=== PATIENT | male | born 1935 | race Caucasian/White ===

== ENCOUNTER 2019-04-30 13:17 | Inpatient (IN) | payer MEDICARE, SELFPAY | END 2019-05-04 15:15 | DRG 310 | PROVIDERS: Admitting Provider Internal Medicine; Emergency Provider Emergency Medicine; PCP Internal Medicine; Visit Provider Internal Medicine | DX: I48.0 Paroxysmal atrial fibrillation (principal); I47.2 Ventricular tachycardia; E78.5 Hyperlipidemia, unspecified; I10 Essential (primary) hypertension; Z86.73 Personal history of transient ischemic attack (TIA), and cerebral infarction without residual deficits; M19.90 Unspecified osteoarthritis, unspecified site; D64.9 Anemia, unspecified; I71.4 Abdominal aortic aneurysm, without rupture; Z96.652 Presence of left artificial knee joint; F03.90 Unspecified dementia, unspecified severity, without behavioral disturbance, psychotic disturbance, mood disturbance, and anxiety; Z85.46 Personal history of malignant neoplasm of prostate; Z23 Encounter for immunization | CPT/HCPCS: 36415; 51701; 70450; 74177; 80048; 80053; 80069; 81001; 81050; 82232; 82533; 82607; 82728; 82746; 83540; 83550; 83605; 83735; 84443; 84484; 85025; 85027; 85610; 85730; 86141; 87040; 87045; 87046; 87081; 87086; 87088; 87324; 87427; 90471; 90686; 93005; 95816; 96361; 96365; 97110; 97116; 97161; 97166; 97530; 97535; 99285; A9270; G0008; G0378; J0696; J3475; J7030; J7120; Q9967 ==

== ENCOUNTER 2019-10-21 19:27 | Inpatient (IN) | payer OTHER, MEDICARE, SELFPAY ==
[2019-10-21] VITALS (9 sets, daily range): BP systolic 139–191; BP diastolic 77–100; PULSE 94–149; RESP 22–38; O2SAT 89–97
--- NOTE | ~2019-10-21 | XR_ITS ---
EXAMINATION: XR chest 1V DATE: 10/21/2019 22:01 INDICATION: Shortness of breath, cough and possible aspiration TECHNIQUE: frontal view of the chest was obtained. COMPARISON: Chest radiograph dated 04/25/19 FINDINGS: New subtle patchy airspace opacities in the right mid and lower lung zone suspicious for aspiration o r pneumonia. Left lung remains clear. Suture line in the right midlung zone and surgical clips at the right hilum. No pleural effusion or pneumothorax. Heart size is normal. Tortuous thoracic aorta. The re are a few old healed left-sided rib fractures. Cholecystectomy clips in the right upper quadrant. IMPRESSION: 1. Subtle patchy airspace opacities in the right mid to lower lung zone with differential including a spiration, pneumonia, atelectasis or less likely asymmetric pulmonary edema. Reviewed, dictated and finalized at location A. TRIC TRUCK DRIVER IMPRESSION: 1. Subtle patchy airspace opacities in the right mid to lower lung zone with di fferential including aspiration, pneumonia, atelectasis or less likely asymmetr ic pulmonary edema.
--- NOTE | ~2019-10-21 | XR_ITS ---
EXAMINATION: XR abdomen obstructive series DATE: 10/21/2019 22:58 INDICATION: Vomiting. Difficulty breathing. TECHNIQUE: Frontal supine and upright views of the abdomen were obtained. COMPARISON: None. FINDINGS: Cholecystectomy clips in the right upper quadrant. Additional surgical clips versus brachytherapy see ds in the pelvis in the region of the prostate. No dilated gas-filled loops of bowel. No free intrap eritoneal gas. Subtle airspace opacities in the right mid to lower lung zone. Moderate lumbar spondyl osis. Moderate left and mild right sacroiliitis. Small bone island at the right femoral neck. IMPRESSION: 1. No free intraperitoneal gas or dilated gas-filled loops of bowel to suggest obstruction. 2. Subtle opacities in the right mid and lower lung zone concerning for aspiration or pneumonia. Reviewed, dictated and finalized at location A. ENTATION DESIGNER IMPRESSION: 1. No free intraperitoneal gas or dilated gas-filled loops of bowel to suggest obstruction. 2. Subtle opacities in the right mid and lower lung zone concerning for aspirat ion or pneumonia.
--- NOTE | 2019-10-21 19:35 | ECG_ITS ---
Measurements Intervals [place] Rate: 101 P: 114 MT: 211 QRS: -70 QRSD: 98 T: 64 QT: 371 QTc: 483 Interpretive Statements ATRIAL FLUTTER/TACHYCARDIA WITH RAPID VENTRICULAR RESPONSE LEFT AXIS DEVIATION INCOMPLETE RIGHT BUNDLE BRANCH BLOCK DELAYED PRECORDIAL R/S TRANSITION BASELINE ARTIFACT- I, II, III, AVR, AVL, AVF, V1-V2 ABNORMAL ECG Electronically Signed On 10-23-2019 16:23:00 GEOSCIENTIST by Maximilian Molina D.O.
--- NOTE | 2019-10-21 20:23 | ED.SOB ---
HPI - SOB/Dyspnea General Chief Complaint: Shortness of Breath/Dyspnea Stated Complaint: poss aspiration Time Seen by Provider: 10/21/19 20:15 Source: family and RN notes reviewed Mode of arrival: EMS Limitations: clinical condition History of Present Illness HPI Narrative: Pt is an 83 y/o male who presents to the ED, via EMS from [facility], with c/o SOB that began earlier this evening. Pt's family was at bedside and provided the information. Pt has a hx of CVA with left sided weakness that occurred 10 days ago (10/11/19). Pt was put to bed lying flat after dinner. Pt was deep coughing frequently and then vomited. Pt's family went to go get NH staff and the NH staff suspected aspiration. Pt is oriented to person only, but pt's family states his orientation was progressively worsening before the pt's CVA. Pt was placed on 4L O2 NC and her saturation improved to the low 90?s. EMS increased her O2 to 6L and her oxygen saturation improved to 98%. Pt's family states that medication given to the pt after his CVA has made the pt more fatigued. Pt has been doing PT while at [facility]. Pt's family denies the pt wearing oxygen at home. He is currently taking antibiotics including flagyl and cipro. Pt is taking ASA 81 mg daily. HPI is limited due to pt?s clinical condition. MD elicited complaint: shortness of breath Onset (ago): hour(s) Context: choking/aspiration Timing: constant Associated symptoms: cough, nausea/vomiting and other (fatigue) Treatment prior to arrival: oxygen Related Data Home oxygen amount: none Home Medications Medication Instructions Recorded Confirmed allopurinol 10/21/19 aspirin [Aspirin Low Dose] 10/21/19 atorvastatin 10/21/19 ciprofloxacin HCl 10/21/19 clopidogrel 10/21/19 ferrous sulfate 10/21/19 finasteride mg 10/21/19 fluconazole 10/21/19 levetiracetam 500 mg PO BID 10/21/19 10/21/19 lisinopril 10/21/19 metronidazole [Flagyl] 500 mg PO Q8H 10/21/19 10/21/19 sennosides [senna] mg 10/21/19 Allergies Allergy/AdvReac Type Severity Reaction Status Date / Time Penicillins Allergy Unknown Rash Verified 10/21/19 19:51 Review of Systems Review of Systems: ROS unobtainable: other (limited due to pt's clinical condition) Constitutional: Constitutional: Reports fatigue Respiratory: Respiratory: Reports cough and Reports dyspnea Gastrointestinal: Gastrointestinal: Reports vomiting PMFSH Past Medical History Medical History (Updated 10/22/19 @ 00:53 by Miles Rosenberg MD) Adenocarcinoma Anemia Arthritis Asthma Bronchitis Cataracts, bilateral CVA (cerebrovascular accident) Gall bladder disease GI bleed HTN (hypertension) Hydrocele Hyperlipidemia IBS (irritable bowel syndrome) Inguinal hernia Lung cancer dx in 2013 Prostate cancer dx in 2012 Rectal bleed TIA (transient ischemic attack) Ulcer Surgical History Surgical History (Updated 10/21/19 @ 20:32 by Sarahi Morales) H/O inguinal hernia repair History of left knee replacement History of thoracic surgery removing the lung cancer Hx of cholecystectomy Family History Family History (Updated 10/21/19 @ 20:35 by Sarahi Morales) Father Cerebrovascular accident Hypertension Mother Hypertension Acute myocardial infarction Sibling Hypertension Acute myocardial infarction Ovarian cancer Social History Social History (Updated 10/21/19 @ 20:33 by Sarahi Morales) Smoking packs per day: 1 Smoking cigarettes per day: 20.0 Years smoked: 20 Smoking pack-years: 20.00 Smoking status: Former smoker Smoking end date: 08/27/66 Gender identity (if verbalized by the patient): Male Exam Const: General: awake and other (elderly, frail) Nutritional Appearance: well nourished Orientation/consciousness: Other orientation findings (oriented x0-1) Limitations: no limitations HENMT: Head: normocephalic and atraumatic Ears: external ears normal General nose exam: No nasal discharge
[2019-10-21] MEDS: ALBUTEROL SULFATE NEB 2.5 MG/0.5 ML INH 5 MG INHALATION (21:35)
[2019-10-21] MEDS: IPRATROPIUM BR 0.02% INH SOLN 0.5 MG/2.5 ML VIAL INHALATION (21:36)
[2019-10-21] MEDS: LACTATED RINGERS 1,000 ML 999 ML IV CONT (22:10)
[2019-10-21 22:29] LABS: Hematocrit 40.2 % (42.0-52.0); Hemoglobin 12.2 g/dL (14.0-18.0); Mean Corpuscular HGB Conc 30.3 g/dl (32-36); Mean Corpuscular Hemoglobin 25.8 pg (26-34); Mean Platelet Volume 9.5 fl (7.4-10.4); Platelet Count Result 365 k/mm3 (150-375); Red Blood Count 4.73 M/mm3 (4.6-6.20); Red Cell Distribution Width 16.3 % (11.5-14.5); White Blood Count 36.4 K/mm3 (4.5-10.0)
[2019-10-21 22:38] LABS: Alanine Aminotransferase 20 U/L (4-50); Albumin Level 3.4 g/dL (3.5-5.1); Alkaline Phosphatase 94 U/L (38-126); Aspartate Amino Transferase 24 U/L (17-59); Bilirubin,Total 0.6 mg/dL (0.2-1.3); Blood Urea Nitrogen 29 mg/dL (9-20); Calcium 8.6 mg/dL (8.4-10.2); Carbon Dioxide 23 mmol/L (22-30); Chloride 99 mmol/L (98-107); Estimated CRCL calculation 65 ml/min; Estimated Glomerular Filt Rate > 60; Glucose 161 mg/dL (75-110); Potassium 3.7 mmol/L (3.4-5.0); Sodium 142 mmol/L (137-145)
[2019-10-21 22:46] LABS: Band Neutrophils Percent 2 % (0-6); Lymphocytes Absolute Manual 4.36 K/mm3 (1.1-4.5); Monocytes Absolute Manual 0.36 K/mm3 (0.1-0.90); Monocytes Percent Manual 1 % (3-9); Neutrophils Absolute Manual 31.66 K/mm3 (1.3-6.7); Neutrophils Percent Manual 85 % (46-73); Total Cells Counted 100
[2019-10-21 22:47] LABS: Anisocytosis 2+ (NORMAL); Platelet Estimate Adequate (Adequate)
[2019-10-21] MEDS: FAMOTIDINE 20 MG/2 ML VIAL 40 MG IV PUSH (22:53)
[2019-10-21] MEDS: ONDANSETRON INJ 4 MG/2 ML VIAL IV PUSH (22:53)
--- NOTE | 2019-10-21 22:59 | PC.NURSE ---
pt vomited large amount of brown fluid all over chest and abdomen. large amount of emesis from nose as well. pt and linens cleaned. pt cleaned of moderate amt brown green foul smelling stool. upper dentures given to son
--- NOTE | 2019-10-21 23:12 | PC.NURSE ---
left message with [facility] to call back.
--- NOTE | 2019-10-21 23:25 | PC.NURSE ---
2314- spoke with lisa at [facility]- she will forward information to the office tomorrow for them to make contact with the family.
[2019-10-22] MEDS: LACTATED RINGERS 1,000 ML 999 ML IV CONT (00:37)
[2019-10-22 00:40] VITALS: BP 107/77; PULSE 126; RESP 33; O2SAT 92
[2019-10-22 00:46] VITALS: BP 135/68; PULSE 112; RESP 28; TEMP 36.8; O2SAT 100; BMI 21.9
[2019-10-22] MEDS: metroNIDAZOLE 500 MG/ISO 100ML 500 MG/100 ML BAG 100 MG IVPB (00:55)
[2019-10-22] MEDS: LACTATED RINGERS 1,000 ML 125 ML IV CONT (01:56)
--- NOTE | 2019-10-22 02:30 | ADMGEN ---
This patient, Weston Ortega, was admitted to 3 Medical Room 346-. Patient/family oriented to hospital policies and general routines including ID bracelet, bed and alarms, visiting hours, pain management, procedures, bathroom and other care routines, personal items, smoking policy, room service/diet, and visiting hours. Valuables list has been completed. Information on how to activate the Rapid Response Team has been discussed. Patient/Family are encouraged to report perceived risks to care and to ask questions if they do not understand what they are told or what they should do.
[2019-10-22] MEDS: ATROPINE SULFATE 1% OPHTH SOLN 5 ML BOTTLE SUBLINGUAL (03:36)
[2019-10-22 06:00] VITALS: BP 95/49; PULSE 95; RESP 24; TEMP 36.2; O2SAT 97
[2019-10-22] MEDS: FAMOTIDINE 20 MG/2 ML VIAL IV PUSH (08:08)
--- NOTE | 2019-10-22 09:19 | PM.IMHP ---
H&P: HPI History of Present Illness Chief complaint: ASPIRATION,RESP FAILURE,SEPSIS Narrative: Weston Ortega is a 83 year old male with a history of stroke, HTN, and hyperlipidemia who presented to the emergency department on 10/21/19 via EMS from [facility] for apparent shortness of breath. From chart review, the patient was put to bed lying flat and then began coughing and vomited. The family was present during the episode and alerted staff. Staff suspected aspiration and he was taken to the ED. At time of visit, the patient is asleep and no family is present. He did not awake to me calling his name. He did not awake to light tough or to more firm pressure. When asked if he was experiencing pain, he did open his eyes and shook his head, implying no. He remained asleep the rest of the encounter. He does appear to be comfortable, however he is experiencing excessive secretions and his breathing is noisy. Per discussion with U[employer] Cool, nursing staff attempted to provide suction overnight and he vomited. Per ER documentation, the family would like to pursue hospice care with [facility]. A administrative representative will be meeting with the patient today. Care coordination is following this process as well. I asked [employer] Cool to call me when family arrived so that I can discuss with them Mr. Ortega's comfort and their expectations during his hospitalization. Edited to note that after long discussion with patient's daughter, she would like to pursue inpatient hospice. She does not wish for her father to have any additional treatment and simply wants him to be kept comfortable. We discussed the medications currently employed to keep her dad comfortable which she accepts. She does not want him to be treated with antibiotics for potential aspiration pneumonia. Review of Systems Review of Systems: ROS unobtainable: unobtainable due to mental condition PMFSH Past Medical History Medical History (Updated 10/22/19 @ 09:51 by Astrid Jaffe PA-C) Adenocarcinoma Anemia Arthritis Asthma Bronchitis Cataracts, bilateral CVA (cerebrovascular accident) Gall bladder disease GI bleed HTN (hypertension) Hydrocele Hyperlipidemia IBS (irritable bowel syndrome) Inguinal hernia Lung cancer dx in 2013 Prostate cancer dx in 2012 Rectal bleed TIA (transient ischemic attack) Ulcer Surgical History Surgical History H/O inguinal hernia repair History of left knee replacement History of thoracic surgery removing the lung cancer Hx of cholecystectomy Family History Family History Father Cerebrovascular accident Hypertension Mother Hypertension Acute myocardial infarction Sibling Hypertension Acute myocardial infarction Ovarian cancer Social History Social History Smoking packs per day: 1 Smoking cigarettes per day: 20.0 Years smoked: 20 Smoking pack-years: 20.00 Smoking status: Former smoker Smoking end date: 08/27/66 Alcohol intake: never Substance use: never Substance use type: does not use Gender identity (if verbalized by the patient): Male Spiritual care concerns: No Agree to blood products: Yes Meds Home Medications and Allergies Home Medications Medication Instructions Recorded Confirmed Type allopurinol 300 mg PO DAILY 10/21/19 10/22/19 History aspirin [Aspirin Low Dose] 81 mg PO DAILY 10/21/19 10/22/19 History atorvastatin 10 mg PO DAILY 10/21/19 10/22/19 History clopidogrel 75 mg PO DAILY 10/21/19 10/22/19 History finasteride 5 mg PO DAILY 10/21/19 10/22/19 History levetiracetam 500 mg PO BID 10/21/19 10/21/19 History lisinopril 20 mg PO DAILY 10/21/19 10/22/19 History metronidazole [Flagyl] 500 mg PO Q8H 10/21/19 10/21/19 History sennosides [senna] See Rx Instructions .ROUTE 10/21/19 10/22/19 History .COMPLEX PRN
[2019-10-22] MEDS: ALBUTEROL SULFATE NEB 2.5 MG/0.5 ML INH 5 MG INHALATION (09:23)
[2019-10-22 09:24] VITALS: PULSE 101; RESP 16
[2019-10-22 09:33] VITALS: PULSE 105; RESP 16
--- NOTE | 2019-10-22 18:25 | P.DS_ITS ---
DS: Diagnosis Admitting Diagnosis Admitting Diagnosis: Aspiration pneumonia Discharge Diagnosis (1) Aspiration pneumonia: Qualifiers: Aspiration pneumonia type: due to vomit Laterality: right Lung location: lower lobe of lung Qualified Code(s): J69.0 - Pneumonitis due to inhalation of food and vomit Code(s): J69.0 - Pneumonitis due to inhalation of food and vomit Status: Suspected (2) Respiratory failure: Qualifiers: Chronicity: acute Respiratory failure complication: hypoxia Qualified Code(s): J96.01 - Acute respiratory failure with hypoxia Code(s): J96.90 - Respiratory failure, unspecified, unspecified whether with hypoxia or hypercapnia Status: Acute (3) Sepsis: Qualifiers: Acute respiratory failure type: with hypoxia Sepsis acute organ dysfunction status: with acute organ dysfunction Sepsis type: sepsis due to unspecified organism Severe sepsis acute organ dysfunction type: acute respiratory failure Severe sepsis shock status: unspecified Qualified Code(s): A41.9 - Sepsis, unspecified organism; R65.20 - Severe sepsis without septic shock; J96.01 - Acute respiratory failure with hypoxia Code(s): A41.9 - Sepsis, unspecified organism Status: Acute (4) Comfort measures only status: Code(s): Z51.5 - Encounter for palliative care Status: Acute DS: Summary Hospital Course Reason for hospitalization: Shortness of breath Hospital Course: Date of admission: 10/21/19 Date of discharge: 10/22/19 Mr. Ortega is a 83-year-old male with history of stroke, hypertension, and hyperlipidemia who presented to the emergency department on 10/21/2019 via EMS from [facility] for apparent shortness of breath. From chart review, the patient was put to bed lying flat and then began coughing and vomiting. The family was present during the episode and alerted staff. Staff suspected aspiration and he was taken to the ED. At initial encounter, the patient was asleep. He did not awake to me calling his name. He did not awake to light touch or to more firm pressure. When asked if he was experiencing pain, he did open his eyes and shook his head, implying no. He remained asleep the rest of the encounter. He did appear to be comfortable, however he was experiencing excessive secretions and his breathing was noisy. After a long discussion with the patient's daughter, it was determined that she would like to pursue inpatient hospice. She wanted to pursue [facility] hospice, however this required a contract. She then decided to have care coordination contact Laura. His daughter reported that she did not wish for her father to have any additional treatment and simply wants him to be kept comfortable. We continued atropine, scopolamine, and IV fluids. A branch sales and service representative from [facility] then saw the patient and accepted him for general inpatient hospice. At this time I stopped all current medications and discharged the patient to hospice service. I remained in contact with the family during the transition to hospice care, and assured them that my thoughts would be with them during this difficult time. The patient was discharged from the hospitalist service on the afternoon of 10/22/19. Time Spent with Patient Time attestation: Total time spent providing and/or coordinating discharge services: 45 minutes Exam Narrative: Exam Narrative: Mr. Ortega is examined alone today. He is lying supine in bed. Constitutional: stuporous, ill appearing Neuro: no focal neuro deficits noted, face symmetric, tongue midline HEENMT: normocephalic, atraumatic, EOMI, sclerae anicteric Neck: supple, no
== END 2019-10-22 13:25 | disposition hospice, inpatient (51) | DRG 871 ==
LOC: ANHED 10-22 00:53 → ANH3MED 10-22 01:39
PROVIDERS: Admitting Provider Internal Medicine; Emergency Provider Emergency Medicine; PCP Family Medicine; Visit Provider Internal Medicine
DX: A41.9 Sepsis, unspecified organism (principal); J69.0 Pneumonitis due to inhalation of food and vomit; J96.01 Acute respiratory failure with hypoxia; I69.854 Hemiplegia and hemiparesis following other cerebrovascular disease affecting left non-dominant side; I10 Essential (primary) hypertension; E78.5 Hyperlipidemia, unspecified; Z96.652 Presence of left artificial knee joint; Z85.118 Personal history of other malignant neoplasm of bronchus and lung; M19.90 Unspecified osteoarthritis, unspecified site; J45.909 Unspecified asthma, uncomplicated; K58.9 Irritable bowel syndrome, unspecified; Z85.46 Personal history of malignant neoplasm of prostate; Z90.49 Acquired absence of other specified parts of digestive tract
CPT/HCPCS: 36415; 71045; 74019; 80053; 85025; 87040; 87081; 93005; 94640; 96361; 96365; 96367; 96375; 99285; A9270; J0692; J2405; J7120

== ENCOUNTER 2019-10-22 13:26 | HOS | payer OTHER, MEDICARE, SELFPAY ==
--- NOTE | 2019-10-22 15:35 | PC.NURSE ---
Patient admitted to [facility].Please see previous admission.
--- NOTE | 2019-10-22 16:59 | PM.IMHP ---
H&P: HPI History of Present Illness Chief complaint: Cerebrovascular vascular Disease Narrative: Weston Ortega is a 83 year old male who was living at home 6 months ago and required minimal assistance with ADLs. He had intermitent confusion. After a recent stroke, he was admitted to acute care due to emesis with aspiration pneumonia and sepsis. He failed to improve with appropriate antibiotic therapy and family did not wish to pursue aggressive measures. Therefore, he was admitted to inpatient hospice service. Review of Systems Review of Systems: ROS unobtainable: unobtainable due to mental status PMFSH Past Medical History Medical History (Updated 10/22/19 @ 17:01 by Yayo Ponce MD) Adenocarcinoma Anemia Arthritis Asthma Bronchitis Cataracts, bilateral CVA (cerebrovascular accident) Gall bladder disease GI bleed HTN (hypertension) Hydrocele Hyperlipidemia IBS (irritable bowel syndrome) Inguinal hernia Lung cancer dx in 2013 Prostate cancer dx in 2012 Rectal bleed TIA (transient ischemic attack) Ulcer Social History Social History Smoking packs per day: 1 Smoking cigarettes per day: 20.0 Years smoked: 20 Smoking pack-years: 20.00 Smoking status: Former smoker Smoking end date: 08/27/66 Alcohol intake: never Substance use: never Substance use type: does not use Gender identity (if verbalized by the patient): Male Spiritual care concerns: No Agree to blood products: Yes Meds Home Medications and Allergies Home Medications Medication Instructions Recorded Confirmed Type allopurinol 300 mg PO DAILY 10/21/19 10/22/19 History aspirin [Aspirin Low Dose] 81 mg PO DAILY 10/21/19 10/22/19 History atorvastatin 10 mg PO DAILY 10/21/19 10/22/19 History clopidogrel 75 mg PO DAILY 10/21/19 10/22/19 History finasteride 5 mg PO DAILY 10/21/19 10/22/19 History levetiracetam 500 mg PO BID 10/21/19 10/21/19 History lisinopril 20 mg PO DAILY 10/21/19 10/22/19 History metronidazole [Flagyl] 500 mg PO Q8H 10/21/19 10/21/19 History sennosides [senna] See Rx Instructions .ROUTE 10/21/19 10/22/19 History .COMPLEX PRN Allergies Allergy/AdvReac Type Severity Reaction Status Date / Time Penicillins Allergy Unknown Rash Verified 10/21/19 19:51 Exam Narrative: Exam Narrative: HEENT: pharyngeal mucosa pink and intact NECK: No JVD CHEST: Coarse crackles diffusely, mildly tacypneic HEART: NL S1/S2, regular, no murmur ABDOMEN: BS hypoactive, soft, nontender, no mass, no bruits EXTREMITIES: No cyanosis, edema, or clubbing NEUROLOGIC: CN intact and symmetric to inspection. MUSCULOSKELETAL: Tone and strength symmetric. PSYCH: Drowsy, responds to noxious stimuli Assessment and Plan Assessment and plan (1) Palliative care by specialist: Code(s): Z51.5 - Encounter for palliative care Status: Acute Assessment and Plan: Requires general inpatient status due to severe dyspnea and restlessness requiring IV medications for control IV morphine at 1 milligram/hour and 2 mg every 2 hours as needed Remainder palliative regimen as ordered (2) Sepsis: Qualifiers: Acute respiratory failure type: with hypoxia Sepsis acute organ dysfunction status: with acute organ dysfunction Sepsis type: sepsis due to unspecified organism Severe sepsis acute organ dysfunction type: acute respiratory failure Severe sepsis shock status: unspecified Qualified Code(s): A41.9 - Sepsis, unspecified organism; R65.20 - Severe sepsis without septic shock; J96.01 - Acute respiratory failure with hypoxia Code(s): A41.9 - Sepsis, unspecified organism Status: Acute (3) Respiratory failure: Qualifiers: Chronicity: acute Respiratory failure complication: hypoxia Qualified Code(s): J96.01 - Acute respiratory failure with hypoxia Code(s): J96.90 - Respiratory failure, unspecified, unspecified whether with
--- NOTE | 2019-10-22 18:25 | PM.DS ---
DS: Diagnosis Admitting Diagnosis Admitting Diagnosis: Aspiration pneumonia Discharge Diagnosis (1) Aspiration pneumonia: Qualifiers: Aspiration pneumonia type: due to vomit Laterality: right Lung location: lower lobe of lung Qualified Code(s): J69.0 - Pneumonitis due to inhalation of food and vomit Code(s): J69.0 - Pneumonitis due to inhalation of food and vomit Status: Suspected (2) Respiratory failure: Qualifiers: Chronicity: acute Respiratory failure complication: hypoxia Qualified Code(s): J96.01 - Acute respiratory failure with hypoxia Code(s): J96.90 - Respiratory failure, unspecified, unspecified whether with hypoxia or hypercapnia Status: Acute (3) Sepsis: Qualifiers: Acute respiratory failure type: with hypoxia Sepsis acute organ dysfunction status: with acute organ dysfunction Sepsis type: sepsis due to unspecified organism Severe sepsis acute organ dysfunction type: acute respiratory failure Severe sepsis shock status: unspecified Qualified Code(s): A41.9 - Sepsis, unspecified organism; R65.20 - Severe sepsis without septic shock; J96.01 - Acute respiratory failure with hypoxia Code(s): A41.9 - Sepsis, unspecified organism Status: Acute (4) Comfort measures only status: Code(s): Z51.5 - Encounter for palliative care Status: Acute DS: Summary Hospital Course Reason for hospitalization: Shortness of breath Hospital Course: Date of admission: 10/21/19 Date of discharge: 10/22/19 Mr. Ortega is a 83-year-old male with history of stroke, hypertension, and hyperlipidemia who presented to the emergency department on 10/21/2019 via EMS from [facility] for apparent shortness of breath. From chart review, the patient was put to bed lying flat and then began coughing and vomiting. The family was present during the episode and alerted staff. Staff suspected aspiration and he was taken to the ED. At initial encounter, the patient was asleep. He did not awake to me calling his name. He did not awake to light touch or to more firm pressure. When asked if he was experiencing pain, he did open his eyes and shook his head, implying no. He remained asleep the rest of the encounter. He did appear to be comfortable, however he was experiencing excessive secretions and his breathing was noisy. After a long discussion with the patient's daughter, it was determined that she would like to pursue inpatient hospice. She wanted to pursue [facility] hospice, however this required a contract. She then decided to have care coordination contact Laura. His daughter reported that she did not wish for her father to have any additional treatment and simply wants him to be kept comfortable. We continued atropine, scopolamine, and IV fluids. A union contract representative from [facility] then saw the patient and accepted him for general inpatient hospice. At this time I stopped all current medications and discharged the patient to hospice service. I remained in contact with the family during the transition to hospice care, and assured them that my thoughts would be with them during this difficult time. The patient was discharged from the hospitalist service on the afternoon of 10/22/19. Time Spent with Patient Time attestation: Total time spent providing and/or coordinating discharge services: 45 minutes Exam Narrative: Exam Narrative: Mr. Ortega is examined alone today. He is lying supine in bed. Constitutional: stuporous, ill appearing Neuro: no focal neuro deficits noted, face symmetric, tongue midline HEENMT: normocephalic, atraumatic, EOMI, sclerae anicteric Neck: supple, no lymphadenopathy Respiratory: course breath sounds with audible upper airway secretions Cardio: regular rate, regular rhythm, no murmur noted Abdomen: normal to inspection, soft, nontender, no masses, bowel sounds present Extremities: no edema, no erythema Skin: ecchymoses on bilateral upper extremetie
[2019-10-22 20:00] VITALS: PULSE 107; RESP 22
[2019-10-22 22:00] VITALS: BP 104/49; PULSE 107; RESP 22; TEMP 37.2
[2019-10-23 06:00] VITALS: BP 145/79; PULSE 110; RESP 16; TEMP 38.1; O2SAT 95
--- NOTE | 2019-10-23 08:12 | P.PNIM_ITS ---
Progress Note: A&P Assessment and Plan (1) Palliative care by specialist: Code(s): Z51.5 - Encounter for palliative care Status: Acute Assessment and Plan: * Requires GIP status due to need for IV medication for control of pain, dyspnea (2) Aspiration pneumonia: Qualifiers: Aspiration pneumonia type: due to vomit Laterality: right Lung location: lower lobe of lung Qualified Code(s): J69.0 - Pneumonitis due to inhalation of food and vomit Code(s): J69.0 - Pneumonitis due to inhalation of food and vomit Status: Suspected (3) Sepsis: Qualifiers: Acute respiratory failure type: with hypoxia Sepsis acute organ dysfunction status: with acute organ dysfunction Sepsis type: sepsis due to unspecified organism Severe sepsis acute organ dysfunction type: acute respiratory failure Severe sepsis shock status: unspecified Qualified Code(s): A41.9 - Sepsis, unspecified organism; R65.20 - Severe sepsis without septic shock; J96.01 - Acute respiratory failure with hypoxia Code(s): A41.9 - Sepsis, unspecified organism Status: Acute (4) Respiratory failure: Qualifiers: Chronicity: acute Respiratory failure complication: hypoxia Qualified Code(s): J96.01 - Acute respiratory failure with hypoxia Code(s): J96.90 - Respiratory failure, unspecified, unspecified whether with hypoxia or hypercapnia Status: Acute Subjective Date/time seen: 10/23/19 07:15 Interval history: Resting comfortably since IV morphine begun. Review of Systems Review of Systems: ROS unobtainable: unobtainable due to mental condition Exam Narrative: Exam Narrative: ENT: symmetric to inspection Neck: no jvd Chest: Coarse rhonchi and crackles, NL effort Heart NL S1,2 RR no murmur Extr trace ankle edema Abd hypoactive BS, soft MS generalized weakness Neuro CN symmetric to inspection Objective Data Vital Signs Vital Signs: Vital Signs - 24 hr 10/22/19 20:00 10/22/19 22:00 10/23/19 06:00 Temperature 99 F 100.6 F H Pulse Rate 107 H 107 H 110 H Respiratory Rate 22 H 22 H 16 Blood Pressure 104/49 L 145/79 H Pulse Oximetry 95 Intake/Output Intake/Output: Intake & Output 10/20/19 10/21/19 10/22/19 10/23/19 23:59 23:59 23:59 23:59 Intake Total 0 Balance 0 Meds/Results Medications: Active Medications Generic Name Dose Route Start Last Admin Trade Name Freq PRN Reason Stop Dose Admin Bisacodyl 10 mg 10/22/19 14:10 Dulcolax Suppository RECTAL DAILY PRN Constipation Glycopyrrolate 0.1 mg 10/22/19 14:10 Robinul Inj IV PUSH Q4H PRN SECRETIONS Morphine Sulfate 50 mg/ Sodium 100 mls @ 2 mls/hr 10/22/19 14:30 10/22/19 15:04 Chloride IV CONT 2 mls/hr .Q24H DIANE Administration Lorazepam 1 mg 10/22/19 14:09 Ativan Inj IV PUSH Q2H PRN ANXIETY/SOB Morphine Sulfate 1 mg 10/22/19 14:10 Morphine Sulfate Inj IV PUSH Q2H PRN Breakthrough Pain Prochlorperazine Edisylate 10 mg 10/22/19 14:11 Compazine IV PUSH Q4H PRN Nausea And Vomiting
[2019-10-23 09:36] VITALS: PULSE 104
[2019-10-23 14:00] VITALS: BP 128/98; PULSE 115; RESP 16; TEMP 36.3; O2SAT 78
[2019-10-23] MEDS: GLYCOPYRROLATE INJ (*SP) 0.2 MG/ML VIAL 0.1 MG IV PUSH (14:32)
--- NOTE | 2019-10-29 16:48 | PM.DDS ---
Discharge Sum: Prov Provider Primary care physician: Yayo Ponce MD Admitting provider: Yayo Ponce MD Discharge Sum: Diag Contributing Factors (1) Aspiration pneumonia: (2) Respiratory failure: (3) Sepsis: Discharge Sum: Summary Date and Time Date of admission: 10/22/19 13:26 Summary Details: Admitted to inpatient hospice service for palliative care. Medications were titrated to comfort. Patient peacefully. Additional Data Attending physician: Yayo Ponce MD
== END 2019-10-23 20:15 | disposition expired | DRG 871 ==
PROVIDERS: Admitting Provider Internal Medicine; PCP Internal Medicine; Visit Provider Internal Medicine
DX: A41.9 Sepsis, unspecified organism (principal); J96.01 Acute respiratory failure with hypoxia; J69.0 Pneumonitis due to inhalation of food and vomit; Z51.5 Encounter for palliative care; R65.20 Severe sepsis without septic shock; H26.9 Unspecified cataract; D64.9 Anemia, unspecified; M19.90 Unspecified osteoarthritis, unspecified site; J45.909 Unspecified asthma, uncomplicated; Z86.73 Personal history of transient ischemic attack (TIA), and cerebral infarction without residual deficits; I10 Essential (primary) hypertension; E78.5 Hyperlipidemia, unspecified; K58.9 Irritable bowel syndrome, unspecified; Z85.118 Personal history of other malignant neoplasm of bronchus and lung; Z85.46 Personal history of malignant neoplasm of prostate; Z87.891 Personal history of nicotine dependence
CPT/HCPCS: J2270